=== PATIENT | female | born 1930 | race Caucasian/White ===

== ENCOUNTER 2017-02-28 20:16 | Emergency (ER) | payer MEDICARE ==
[~2017-02-28] VITALS: Ht 154.9 cm; Wt 56.7 kg
--- NOTE | ~2017-02-28 | CT4 ---
[facility] A Service of [facility] RADIOLOGY TEXT RESULTS PATIENT: CARLOTA TRIPLETT LOCATION: [facility] : [birth year] UNIT #: [id number] AGE: [address]: Jun Morataya MD SEX: F ORDER DR: [id number] [facility] [address] [place], [place] [address] [id number] E MR#: [id number] Acc #: [id number] NAME: CARLOTA TRIPLETT : 1930 SEX: F STUDY DATE/TIME: 02/28/2017 22:27 UNIT: [place] ROOM: STUDY DESCRIPTION: CT Abd and Pelv Wo Cont Attending Physician: Jun Morataya M.D. Ordering Physician: Tamie Reeves M.D. Primary Care Physician: Oswald Betancourt M.D. MEDICAL IMAGING REPORT This report is preliminary unless electronic signature is present EXAM CT abdomen and pelvis without contrast, 02/28/2017. HISTORY 86-year-old female with bilateral flank pain beginning yesterday. COMPARISON CT abdomen and pelvis, 12/10/2015. TECHNIQUE Helical scan performed through the abdomen and pelvis without oral or IV contrast. Coronal and sagittal reformatted images. This CT exam was performed with one or more of the following radiation dose reduction techniques: automatic exposure control, adjustment of mA and/or kV according to patient size, and iterative reconstruction. FINDINGS Visualized lung bases are unremarkable. There is a [id number] hiatal hernia. The liver, pancreas, both adrenal glands, and both kidneys are grossly unremarkable allowing for lack of IV contrast. Left renal cyst. No urinary tract stones or hydronephrosis. Spleen and gallbladder are surgically absent. Abdominal aorta normal in course and caliber with extensive atherosclerotic calcification. Small bowel unremarkable without obstruction. Appendix surgically absent. Moderate stool burden throughout the colon. Uncomplicated sigmoid colonic diverticulosis. No free fluid or free air. Urinary bladder is unremarkable. Uterus is surgically absent. No free pelvic fluid. No acute bony abnormality. [facility] A Service of [facility] RADIOLOGY TEXT RESULTS PATIENT: TRIPLETT,CARLOTA LOCATION: [place] : [birth year] UNIT #: [id number] AGE: [address]: Jun Morataya MD SEX: F ORDER DR: IMPRESSION 1. No acute abdominal or pelvic findings. 2. Status post splenectomy, cholecystectomy, appendectomy, and hysterectomy. 3. Moderate stool burden. 4. Uncomplicated sigmoid colonic diverticulosis. 5. Moderate to large hiatal hernia. Dictated by... Jelani Mckeon M.D. THIS IS AN ELECTRONICALLY VERIFIED REPORT Jelani Mckeon M.D. at 03/02/2017 10:44 AM Devonte TD: 03/01/2017 22:09 JOB #: [id number] MEDICAL IMAGING REPORT Page 1 of 1 COPY
--- NOTE | ~2017-02-28 | EKG ---
PATIENT: CARLOTA TRIPLETT UNIT #: [id number] Ventricular Rate: 70 BPM Atrial Rate: 70 BPM P-R Interval: 296 ms QRS Duration: 82 ms Q-T Interval: 402 ms QTC Calculation(Bezet): 434 ms Calculated R [place]: 16 degrees Calculated T [place]: 58 degrees Diagnosis Line: Atrial-paced rhythm with prolonged AV conduction Diagnosis Line: Abnormal ECG Diagnosis Line: When compared with ECG of 10-DEC-2015 18:40, Diagnosis Line: Vent. rate has increased BY 9 BPM Diagnosis Line: Confirmed by ALEXSANDRA ROLAND MD ([id number]) on Diagnosis Line: 03/02/2017 4:54:35 PM INTERPRETING MD: CHERYL
--- NOTE | ~2017-02-28 | CR72 ---
[facility] A Service of [facility] RADIOLOGY TEXT RESULTS PATIENT: CARLOTA TRIPLETT LOCATION: [facility] : [birth year] UNIT #: [id number] AGE: [address]: Jun Morataya MD SEX: F ORDER DR: [id number] [facility] [address] [place], [place] [address] [id number] E MR#: [id number] Acc #: [id number] NAME: CARLOTA TRIPLETT : 1930 SEX: F STUDY DATE/TIME: 02/28/2017 23:19 UNIT: [place] ROOM: STUDY DESCRIPTION: CR Chest Single View Portable Attending Physician: Jun Morataya M.D. Ordering Physician: Tamie Reeves M.D. Primary Care Physician: Oswald Betancourt M.D. MEDICAL IMAGING REPORT This report is preliminary unless electronic signature is present EXAM Portable chest HISTORY Chest pain today. Shortness of air. FINDINGS Mild cardiac enlargement. Moderately large hiatal hernia. Mild chronic elevation of the right hemidiaphragm. Mild atelectasis or scarring in both lung bases, right greater than left. No airspace infiltrates or effusions. Left subclavian pacer leads extend into the right atrium and right ventricle. IMPRESSION No acute findings. Mild cardiac enlargement. Moderately large hiatal hernia. Dictated by... Shine Fagan M.D. THIS IS AN ELECTRONICALLY VERIFIED REPORT Shine Fagan M.D. at 03/02/2017 4:45 AM PRABHU/lluvia TD: 03/01/2017 22:46 JOB #: [id number] MEDICAL IMAGING REPORT Page 1 of 1 COPY
[~2017-02-28 20:16] MED LIST: ASPIRIN PO; BETAPACE PO; CALCIUM 500 + D1 TAB; CALCIUM 500 + D1 TAB PO; COUMADIN PO; COUMADIN2.5 MG PO; DARVOCET-N 1001 TAB; DIAZEPAM; DIAZEPAM PO; DIOVAN; DIOVAN PO; FOSAMAX; HYDROCODON-ACE1 EACH PO; LASIX20 MG PO; LOPRESSOR PO; MULTIVITAMIN W-1 TAB; NEXIUM; NEXIUM PO; OCUVITE TABLET1 TAB; PRAVACHOL; PRAVACHOL PO; PRAVASTATIN SOD40 MG PO; PRESERVISION SO1 CAP PO; PRESERVISION1 EA PO; PRILOSEC PO; PRILOSEC20 M1 PO; PROPAFENONE HC225 MG PO; RYTHMOL; RYTHMOL PO; RYTHMOL SR225 MG PO; SOTALOL AF80 M1 PO; TOPROL XL; TOPROL XL PO; WARFARIN SODIU2.5 M1 PO
[2017-02-28 20:57] LABS: BASOPHIL# 0.1 X10e3 (0-0.3); BASOPHIL% 0.8 % (0-2.5); DIFF IND NO; EOSINOPHIL# 0.2 X10e3 (0-0.7); EOSINOPHIL% 2.5 % (0.0-7.0); HEMATOCRIT 40.3 % (35.0-45.0); HEMOGLOBIN 13.4 gm/dL (12.0-16.0); LYMPHOCYTE# 2.1 X10e3 (1.0-3.5); LYMPHOCYTE% 20.8 % (17.0-45.0); MEAN CELL VOLUME 92.4 FL (83-96); MEAN CORPUSCULAR HEMOGLOBIN 30.8 PG (28-34); MEAN CORPUSCULAR HGB CONC 33.3 g/dL (30-36); MEAN PLATELET VOLUME 8.8 FL (6.5-11.5); MONOCYTE# 1.4 X10e3 (0-1.0); MONOCYTE% 13.7 % (3.0-12.0); NEUTROPHIL# 6.2 X10e3 (1.5-7.1); NEUTROPHIL% 62.2 % (40-75); PLATELET COUNT 223 X10e3 (140-420); RED BLOOD COUNT 4.36 X10e (3.90-5.30); RED CELL DISTRIBUTION WIDTH 14.3 % (11.0-15.5)
[2017-02-28 21:13] LABS: INR 1.4; PARTIAL THROMBOPLASTIN TIME 30.8 SECONDS (23.5-31.3); PROTHROMBIN TIME (PATIENT) 15.3 SECONDS (10.0-11.7)
[2017-02-28 21:26] LABS: ALBUMIN SERUM 4.1 g/dL (3.5-5.0); BILIRUBIN, DIRECT 0.1 mg/dL (0.0-0.2); BILIRUBIN,INDIRECT 0.8 mg/dL (0.0-0.9); BILIRUBIN,TOTAL 0.9 mg/dL (0.2-2.0); BUN/CREATININE RATIO 23.75; CALCIUM SERUM 9.6 mg/dL (8.4-10.2); CREATININE SERUM 0.8 mg/dL (0.6-1.4); GLOM FILT RATE Estimated 66.3 mL/min (>60); PROTEIN TOTAL SERUM 7.4 g/dL (6.0-8.3)
[2017-02-28 22:05] LABS: URINE SOURCE CLEAN CATCH
[2017-02-28 22:12] LABS: URINE APPEARANCE CLEAR; URINE BILIRUBIN NEG (NEG); URINE BLOOD NEG (NEG); URINE COLOR YELLOW; URINE GLUCOSE NEG (NEG); URINE KETONE TRACE (NEG); URINE LEUKOCYTE ESTERASE NEG (NEG); URINE NITRATE NEG (NEG); URINE PH 5.5 (5-8); URINE PROTEIN NEG (NEG); URINE SPECIFIC GRAVITY 1.007 (1.003-1.035); URINE UROBILINOGEN 0.2 MG/DL (NEG)
[2017-02-28 22:15] LABS: CULTURE INDICATED? NO
[2017-02-28 23:05] LABS: POC - CKMB 1.1 ng/mL (0.0-7.9); POC - TROPONIN <0.05 ng/mL (<=0.05)
[2017-03-01 00:48] LABS: POC - CKMB <1.0 ng/mL (0.0-7.9); POC - TROPONIN <0.05 ng/mL (<=0.05)
== END 2017-03-01 02:10 | disposition home or self-care (01) ==
LOC: CED 20:16
PROVIDERS: Emergency Medicine; Student in an Organized Health Care Education/Training Program
DX: R07.89 Other chest pain (principal); R10.9 Unspecified abdominal pain; R30.0 Dysuria; I48.91 Unspecified atrial fibrillation; Z79.01 Long term (current) use of anticoagulants
CPT/HCPCS: 36415; 51702; 71010; 74176; 80048; 80076; 81003; 82553; 84484; 85025; 85610; 85730; 93005; 96374; 96375; 96376; 99284; J2270; J2405

== ENCOUNTER 2017-03-01 13:55 | Emergency (ER) | payer OTHER, MEDICARE, BC ==
[~2017-03-01] VITALS: Ht 154.9 cm; Wt 55.8 kg
[2017-03-01 16:20] LABS: URINE SOURCE CLEAN CATCH
[2017-03-01 16:31] LABS: URINE APPEARANCE CLEAR; URINE BLOOD NEG (NEG); URINE COLOR DK YELLOW; URINE GLUCOSE NEG (NEG); URINE KETONE TRACE (NEG); URINE LEUKOCYTE ESTERASE TRACE (NEG); URINE NITRATE NEG (NEG); URINE PROTEIN 1+ (NEG); URINE SPECIFIC GRAVITY 1.024 (1.003-1.035)
[2017-03-01 16:34] LABS: CULTURE INDICATED? YES; URBCS1 AUWI 0-2 /[HPF] (0-2); URINE BACTERIA AUWI NEG (NEGATIVE); URINE SQUAMOUS EPITHELIAL CELL OCC /[HPF]
[2017-03-01 16:40] LABS: URINE BILIRUBIN NEG (NEG)
== END 2017-03-01 17:10 | disposition home or self-care (01) ==
LOC: CED 13:55
PROVIDERS: Emergency Medicine
DX: S39.012A Strain of muscle, fascia and tendon of lower back, initial encounter (principal); I48.91 Unspecified atrial fibrillation; F41.9 Anxiety disorder, unspecified; Z90.89 Acquired absence of other organs; X58.XXXA Exposure to other specified factors, initial encounter
CPT/HCPCS: 81003; 87086; 99283